=== PATIENT | male | born 2000 | race Caucasian/White ===

== ENCOUNTER 2021-06-01 11:08 | Emergency (ER) | payer SELFPAY ==
[~2021-06-01] VITALS: Ht 175.3 cm; Wt 65.0 kg
[2021-06-01 11:10] VITALS: BP 107/63
[2021-06-01 12:12] LABS: HEMOGLOBIN. 16.2 g/dL (14.0-18.0); MEAN CORPUSCULAR HEMOGLOBIN 30.1 pg (28.0-32.0); MEAN CORPUSCULAR VOLUME 91.3 fL (80.0-94.0); MEAN PLATELET VOLUME 8.3 fl (7.4-10.4); PLATELET 260 x1000/uL (130-400); RED BLOOD CELL COUNT 5.36 mill/uL (4.7-6.1); RED CELL DISTRIBUTION WIDTH 14.5 % (11.6-14.6)
[2021-06-01 12:17] LABS: CHLORIDE 111 mEq/L (98-107)
[2021-06-01 13:35] LABS: PLATELET ESTIMATE NORMAL
== END 2021-06-01 14:20 | disposition left against medical advice (07) ==
LOC: ER 11:08
DX: Z53.21 Procedure and treatment not carried out due to patient leaving prior to being seen by health care provider (principal)
CPT/HCPCS: 36415; 80053; 85025